=== PATIENT | male | born 2000 | race Two or more races ===

== ENCOUNTER 2023-07-22 23:05 | Emergency (ER) | payer MEDICAID, OTHER ==
[~2023-07-22] VITALS: Ht 177.8 cm; Wt 147.0 kg
[2023-07-22 23:05] VITALS: BP 128/62; PULSE 95; RESP 22; TEMP 97.8
[2023-07-22] MEDS ORDERED: DIPH25CA66 PO (23:49)
[2023-07-22] MEDS ORDERED: PRED20TA2 PO (23:49)
[2023-07-22] MEDS: diphenhdrAMINE HCL 50 MG/1 ML VL IM ONE (23:50)
[2023-07-22] MEDS: methylPREDNISolone SOD SUCC 125 MG/2 ML VL IM ONE (23:52)
[2023-07-23 01:25] VITALS: O2SAT 99
== END 2023-07-23 01:45 | disposition home or self-care (01) ==
LOC: ER 23:05
DX: T78.40XA Allergy, unspecified, initial encounter (principal); E66.01 Morbid (severe) obesity due to excess calories; Z68.42 Body mass index [BMI] 45.0-49.9, adult; Z79.899 Other long term (current) drug therapy; Z88.8 Allergy status to other drugs, medicaments and biological substances; Y92.89 Other specified places as the place of occurrence of the external cause
CPT/HCPCS: 96372; 99284; J1200; J2930